=== PATIENT | female | born 1995 | race African-American/Black ===

== ENCOUNTER 2022-04-23 13:07 | Emergency (ER) | payer OTHER ==
[2022-04-23 16:54] LABS: #Eosinphils 0.1 10x3/uL (0.0-0.5); #Monocytes 0.5 10x3/uL (0.0-1.1); #Neutrophils 4.8 10x3/uL (1.5-8.4); %Basophils 0.4 % (0.0-2.0); %Eosinophils 1.8 % (0.0-6.0); %Monocytes 7.1 % (0.0-10.0); %Neutrophils 65.6 % (40.0-75.0); Hemoglobin 12.2 g/dL (12.0-15.5); Mean Corpuscular HGB CONC 31.9 g/dL (32.0-36.0); Mean Corpuscular Hemoglobin 27.9 pg (27.0-33.0); Mean Corpuscular Volume 87.4 fl (81.6-98.3); Mean Platelet Volume 10.6 fl (7.4-10.4); Platelet Count 300 10x3/uL (150-450); RBC Distribution Width 12.5 % (11.5-14.5); Red Blood Cell (RBC) Count 4.38 10x6/uL (3.90-5.03); White Blood Cell (WBC) Count 7.4 10x3/uL (3.5-10.5)
[2022-04-23 17:02] LABS: PTT 28.3 sec (22.0-33.0); Prothrombin Time 10.7 sec (9.5-12.1)
[2022-04-23 17:03] LABS: Anion Gap 11 mmol/L (10-20); BUN (Urea Nitrogen) 15 mg/dL (7.0-18.7); Calc. Creatinine Clearance 0 mL/min (70-130); Calcium 9.2 mg/dL (7.8-10.44); Carbon Dioxide 23 mmol/L (22-29); Chloride 107 mmol/L (98-107); Estimated GFR 118; Glucose 86 mg/dL (70-105); Sodium 137 mmol/L (136-145)
== END 2022-04-23 17:34 | disposition home or self-care (01) ==
LOC: CSHERS 13:07
DX: R04.0 Epistaxis (principal); R09.81 Nasal congestion
CPT/HCPCS: 80048; 85025; 85610; 85730; 99283